=== PATIENT | female | born 1960 | race Caucasian/White ===

== ENCOUNTER → 2016-11-09 | Outpatient (CLI) | payer BC ==
[~2016-11-09] MED LIST: BUT/APAP/CAF TAB PO
== END ==
LOC: MC.RAD 10:20
DX: Z12.31 Encounter for screening mammogram for malignant neoplasm of breast (principal)

== ENCOUNTER 2018-10-01 07:02 | Day surgery (SDC) | payer BC ==
[~2018-10-01] VITALS: Ht 162.6 cm; Wt 89.0 kg
[2018-10-01] MEDS ORDERED: LIPITOR 40MG TA40 MG PO (07:16)
[2018-10-01] MEDS ORDERED: HYZAAR 25 MG-101 TAB PO (07:16)
[2018-10-01] MEDS ORDERED: FIORICET 325 MG1 TA1 PO (07:17)
[2018-10-01] MEDS ORDERED: XANAX 0.5MG0.5 MG PO (07:17)
[2018-10-01] MEDS ORDERED: GLUCOPHAGE1000 MG PO (07:18)
[2018-10-01] MEDS ORDERED: ZOLOFT 50MG50 MG PO (07:18)
[2018-10-01] MEDS ORDERED: VICTOZA6 MG/ML SQ (07:19)
[2018-10-01] MEDS ORDERED: NORVASC 5MG5 MG/TAB PO (07:20)
[2018-10-01] MEDS ORDERED: VALTREX1 GM PO (07:20)
[2018-10-01] MEDS ORDERED: TEMOVATE OINT30 GM TOP (07:21)
[2018-10-01] MEDS ORDERED: DAILY MULTIPLE1 T18 PO (07:22)
[2018-10-01] MEDS ORDERED: CALCIUM CARBON650 M2 PO (07:22)
[2018-10-01 07:51] VITALS: BP 144/90; PULSE 78; TEMP 97
--- NOTE | 2018-10-01 08:35 | NUR ---
Dr Ward visiting with patient's spouse at this time.
[2018-10-01 08:40] VITALS: BP 146/81; PULSE 81; TEMP 97.7
--- NOTE | 2018-10-01 08:40 | NUR ---
Patient arrives back to [facility] alert, denies pain or nausea. Patient ambulates from cart to chair without any complications. Patient monitor applied, vitals stable. Patient's spouse at bedside.
[2018-10-01 08:55] VITALS: BP 136/81; PULSE 82
--- NOTE | 2018-10-01 09:05 | NUR ---
Dismissal instructions gone over with patient and patient's spouse. Both verbalize understanding and all questions answered.
--- NOTE | 2018-10-01 09:10 | NUR ---
Patient discharged to patient enterance ambulatory with spouse. Patient and spouse leave thanking staff for services.
== END 2018-10-01 09:10 | disposition home or self-care (01) ==
LOC: SDCO 07:02
DX: K62.5 Hemorrhage of anus and rectum (principal); Z87.19 Personal history of other diseases of the digestive system; E11.9 Type 2 diabetes mellitus without complications; Z79.4 Long term (current) use of insulin; Z79.899 Other long term (current) drug therapy; I10 Essential (primary) hypertension; G47.33 Obstructive sleep apnea (adult) (pediatric); G44.209 Tension-type headache, unspecified, not intractable; Z98.51 Tubal ligation status; Z90.710 Acquired absence of both cervix and uterus; Z90.49 Acquired absence of other specified parts of digestive tract
CPT/HCPCS: J2250; J2405; J3010; J7030

== ENCOUNTER → 2018-11-25 | Outpatient (CLI) | payer BC ==
[~2018-11-25] MED LIST changes: +CALCIUM CARBON650 M2 PO; +DAILY MULTIPLE1 T18 PO; +FIORICET 325 MG1 TA1 PO; +GLUCOPHAGE1000 MG PO; +HYZAAR 25 MG-101 TAB PO; +LIPITOR 40MG TA40 MG PO; +NORVASC 5MG5 MG/TAB PO; +TEMOVATE OINT30 GM TOP; +VALTREX1 GM PO; +VICTOZA6 MG/ML SQ; +XANAX 0.5MG0.5 MG PO; +ZOLOFT 50MG50 MG PO
== END ==
LOC: MC.RAD 11-15 11:30
DX: Z12.31 Encounter for screening mammogram for malignant neoplasm of breast (principal)

== ENCOUNTER → 2019-10-23 | Outpatient (CLI) | payer BC | LOC: MC.RAD 10:02 | DX: Z12.31 Encounter for screening mammogram for malignant neoplasm of breast (principal) ==

== ENCOUNTER → 2020-11-10 | Outpatient (CLI) | payer BC | LOC: MC.RAD 11:06 | DX: Z12.31 Encounter for screening mammogram for malignant neoplasm of breast (principal) ==

== ENCOUNTER → 2021-11-17 | Outpatient (CLI) | payer BC | LOC: MC.RAD 12:44 | DX: Z12.31 Encounter for screening mammogram for malignant neoplasm of breast (principal) ==

== ENCOUNTER → 2023-01-03 | Outpatient (CLI) | payer BC ==
[~2023-01-03] MED LIST changes: +LEXAPRO 10MG10 MG PO
== END ==
LOC: MC.RAD 14:23
DX: Z12.31 Encounter for screening mammogram for malignant neoplasm of breast (principal)

== ENCOUNTER → 2023-12-31 | Outpatient (CLI) | payer MEDICARE, OTHER | LOC: MC.RAD 12:39 | DX: Z12.31 Encounter for screening mammogram for malignant neoplasm of breast (principal) ==